=== PATIENT | female | born 2000 | race Two or more races ===

== ENCOUNTER 2023-01-15 21:43 | Emergency (ER) | payer OTHER ==
[~2023-01-15] VITALS: Ht 175.3 cm; Wt 65.8 kg
[2023-01-15 22:01] VITALS: BP 113/75
[2023-01-15] MEDS ORDERED: CLIN300C12 PO (23:11)
--- NOTE | 2023-01-15 23:57 | NUR ---
Patient discharged to home in stable condition. Written and verbal after care instructions given. Patient verbalizes understanding of instruction.
== END 2023-01-15 23:57 | disposition home or self-care (01) ==
LOC: ER 21:48
DX: J03.90 Acute tonsillitis, unspecified (principal); Z88.0 Allergy status to penicillin